=== PATIENT | male | born 1995 ===

== ENCOUNTER 2016-09-07 16:28 | Emergency (ER) | payer SELFPAY ==
--- NOTE | 2016-09-07 17:24 | UC ---
Shoulder Pain HPI - HPI Summary HPI Summary: Vague R shoulder pain starting about a week ago. Has reduced his normal workouts at the gym due to pain. No hx of fx or sx, no known injury. Waking in the middle of the night with significant pain. When the pain is "acting up" he cannot raise arm on his own, describes having to use a wall or lift his arm with his other hand. - History of Current Complaint Chief Complaint: UCUpperExtremity Stated Complaint: SHOULDER PAIN Time Seen by Provider: 09/07/16 17:00 Hx Obtained From: Patient Onset/Duration: Gradual Onset, Lasting Days Timing: Constant Severity Initially: Mild Severity Currently: Moderate Character: Dull, Aching Aggravating Factor(s): Movement, Lifting - Allergies/Home Medications Allergies/Adverse Reactions: Allergies Allergy/AdvReac Type Severity Reaction Status Date / Time No Known Allergies Allergy Verified 09/07/16 16:49 PMH/Surg Hx/FS Hx/Imm Hx Endocrine History Of: Denies: Diabetes, Thyroid Disease Cardiovascular History Of: Denies: Cardiac Disorders, Hypertension Respiratory History Of: Denies: COPD, Asthma GI/ History Of: Denies: Ulcer - Surgical History Surgical History: None - Family History Known Family History: Positive: Hypertension - Social History Occupation: Employed Full-time - [employer] Alcohol Use: Occasionally Substance Use Type: None Smoking Status (MU): Current Some Day Smoker Cessation Counseling: Patient Advised to Stop Review of Systems Constitutional: Negative Skin: Negative Eyes: Negative ENT: Negative Respiratory: Negative Cardiovascular: Negative Gastrointestinal: Negative Genitourinary: Negative Motor: Negative Neurovascular: Negative Musculoskeletal: Arthralgia Neurological: Negative Psychological: Negative All Other Systems Reviewed And Are Negative: Yes Physical Exam Triage Information Reviewed: Yes Appearance: Well-Appearing, No Pain Distress, Well-Nourished Vital Signs: Initial Vital Signs Temp 97.5 F 09/07/16 16:43 Pulse 69 09/07/16 16:43 Resp 18 09/07/16 16:43 BP 114/72 09/07/16 16:43 Pulse Ox 98 09/07/16 16:43 Vital Signs Reviewed: Yes Eye Exam: Normal Eyes: Positive: Conjunctiva Clear ENT Exam: Normal ENT: Positive: Normal ENT inspection, Hearing grossly normal, Pharynx normal, TMs normal Dental Exam: Normal Neck exam: Normal Neck: Positive: Supple, Nontender, No Lymphadenopathy Respiratory Exam: Normal Respiratory: Positive: Chest non-tender, Lungs clear, Normal breath sounds, No respiratory distress, No accessory muscle use Cardiovascular Exam: Normal Cardiovascular: Positive: RRR, No Murmur Musculoskeletal Exam: Other - no R shoulder tenderness, rotator cuff weakness Musculoskeletal: Positive: ROM Limited @ - R shoulder Neurological Exam: Normal Neurological: Positive: Alert Psychological Exam: Normal Skin Exam: Normal Shoulder Course/Dx - Differential Dx/Diagnosis Provider Diagnoses: R shoulder rotator cuff tendinitis Discharge - Discharge Plan Condition: Stable Disposition: HOME Prescriptions: Naproxen [Naproxen 500 MG TABS] 500 mg PO BID #20 tab Patient Education Materials: Rotator Cuff Tendinitis (ED) Referrals: Simon Coles MD [Medical Doctor] - 1 Week Additional Instructions: Use ice, heat, and massage as needed for pain.
== END 2016-09-07 17:26 | disposition home or self-care (01) ==
LOC: UCEAST 16:28
DX: M75.101 Unspecified rotator cuff tear or rupture of right shoulder, not specified as traumatic (principal); Z72.0 Tobacco use
CPT/HCPCS: 99202; G0463